=== PATIENT | female | born 1935 | race Caucasian/White ===

== ENCOUNTER 2017-02-14 14:37 | Outpatient (CLI) | payer MEDICARE, BC ==
--- NOTE | 2017-02-20 14:08 | MMO ---
BILATERAL DIGITAL SCREENING MAMMOGRAMS: Date: 02/14/17 HISTORY: 82-year-old female presents for digital screening mammogram. COMPARISON: 10/21/14, 10/17/12. FINDINGS: This patient's mammogram was interpreted with the assistance of computer-aided detection. Scattered areas of fibroglandular density noted bilaterally. Numerous typically benign stable calcifi cations. No direct or indirect evidence of malignancy. IMPRESSION: BIRADS 2: Benign Finding(s) Continue routine screening. POS: [facility]
== END 2017-02-14 14:38 | disposition home or self-care (01) ==
LOC: MAMMO 14:37
PROVIDERS: ATTEND Family Medicine
DX: Z12.31 Encounter for screening mammogram for malignant neoplasm of breast (principal)
CPT/HCPCS: 77067; G0202

== ENCOUNTER 2017-04-20 08:50 | Outpatient (CLI) | payer MEDICARE, BC | END 2017-04-20 08:51 | disposition home or self-care (01) | LOC: BICULT 08:50 | PROVIDERS: ATTEND Internal Medicine Nephrology | DX: N18.3 Chronic kidney disease, stage 3 (moderate) (principal); N28.1 Cyst of kidney, acquired | CPT/HCPCS: 76700; 76770 ==

== ENCOUNTER 2017-09-04 10:36 | Outpatient (CLI) | payer MEDICARE, BC | END 2017-09-04 10:37 | disposition home or self-care (01) | LOC: BICMAMMO 10:36 | PROVIDERS: ATTEND Family Medicine | DX: Z78.0 Asymptomatic menopausal state (principal) | CPT/HCPCS: 77080 ==

== ENCOUNTER 2017-11-22 10:52 | Observation (INO) | payer MEDICARE, BC ==
[2017-11-22] MEDS ORDERED: Metoclopramide HCl 10 MG/2 ML VIAL ONE (11:09)
[2017-11-22] MEDS ORDERED: Acetaminophen 500 MG TAB ONE (11:09)
[2017-11-22] MEDS ORDERED: diphenhydrAMINE 50 MG/ML VIAL ONE (11:10)
[2017-11-22 11:14] LABS: #Basophils 0.1 thou/uL (0.0-0.2); #Lymphocytes 3.2 thou/uL (1.20-3.40); #Neutrophils 8.5 thou/uL (1.40-6.50); %Basophils 0.8 % (0.0-1.0); %Eosinophils 0.1 % (0.0-10.0); %Lymphocytes 25.2 % (21.0-51.0); %Monocytes 7.9 % (0.0-10.0); Hemoglobin 14.4 g/dL (12.0-16.0); Mean Corpuscular HGB CONC 35.7 g/dL (32.0-36.0); Mean Corpuscular Hemoglobin 34.5 pg (27.0-31.0); Mean Corpuscular Volume 96.5 fL (78.0-98.0); Mean Platelet Volume 7.1 fL (7.4-10.4); Platelet Count 238 thou/uL (130-400); RBC Distribution Width 11.8 % (11.5-14.5); Red Blood Cell (RBC) Count 4.18 mill/uL (4.20-5.40); White Blood Cell (WBC) Count 12.8 thou/uL (4.8-10.8)
--- NOTE | 2017-11-22 12:35 | CT ---
CT ANGIOGRAM HEAD: HISTORY: Intractable headache. Worst headache of life. COMPARISON: None. TECHNIQUE: A noncontrast head CT is performed in the axial plane. A CT angiogram of the head is performed in th e axial plane. Three-dimensional reformatted images are submitted for interpretation. FINDINGS: CT HEAD: No parenchymal hemorrhage. No extraaxial hematoma. No parenchymal mass, mass effect, or m idline shift. Age appropriate brain volume. Cortical mcneil white matter differentiation is preserved . The ventricles and sulci are patent and symmetric. The calvarium is intact. Adequate aeration of the sinuses and mastoid air cells. Post contrast images do not demonstrate any pathologic enhancement of the brain parenchyma. The distal cervical and intracranial internal carotid arteries have symmetric enhancement and luminal diameter. ANTERIOR CIRCULATION: There is appropriate enhancement and luminal diameter of the A1 and M1 segment s. The proximal M2 segments and A2 segments are unremarkable. The proximal MCA branches are also un remarkable. No evidence of aneurysm in the anterior circulation. POSTERIOR CIRCULATION: Co-dominant vertebral arteries. Limited evaluation of the right PICA origin. The left PICA origin appears to be unremarkable. Both vertebral arteries supply a normal appearing basilar artery. The left and right P1 segments have appropriate enhancement and luminal diameter. There is no evidence of an aneurysm in the posterior circulation. IMPRESSION: 1. No acute intracranial process. 2. Unremarkable CT angiogram of the [place]. No evidence of an aneurysm. POS: [facility]
[2017-11-22 12:37] LABS: ALT (SGPT) 13 U/L (8-55); AST (SGOT) 23 U/L (5-34); Albumin 3.6 g/dL (3.4-4.8); Alkaline Phosphatase 77 U/L (40-150); Anion Gap 10 mmol/L (10-20); BUN (Urea Nitrogen) 23 mg/dL (9.8-20.1); Bilirubin, Total 1.4 mg/dL (0.2-1.2); Calc. Creatinine Clearance 0 mL/min (70-130); Calcium 9.1 mg/dL (7.8-10.44); Carbon Dioxide 31 mmol/L (23-31); Chloride 98 mmol/L (98-107); Estimated GFR-MDRD 45; Globulin 3.5 g/dL (2.4-3.5); Glucose 119 mg/dL (83-110); Protein, Total 7.1 g/dL (6.0-8.3); Sodium 136 mmol/L (136-145)
[2017-11-22 12:41] LABS: Potassium 2.9 mmol/L (3.5-5.1)
[2017-11-22] MEDS ORDERED: ISOVUE-370 76%-LOCM 1 ML ONE (12:47)
[2017-11-22] MEDS ORDERED: methylPREDNISolone Sod Succ/PF 125 MG/2 ML VIAL ONE (14:17)
[2017-11-22] MEDS ORDERED: Magnesium 2 GM/NS 0.9% 100 ML 2 GM in Premix Bag 1 BAG IVPB SCH (14:30)
[2017-11-22 16:30] LABS: CSF Source CSF; Clarity Clear (Clear); Tube # 4
[2017-11-22 16:32] LABS: RBC Count - Manual 1 /cumm (None Seen); WBC/NonHematics Count - Manual 0 /cumm (0-5)
[2017-11-22] MEDS ORDERED: Potassium Chloride 20 MEQ TAB ONE (16:32)
[2017-11-22 16:40] LABS: CSF Source CSF; Clarity Clear (Clear); RBC Count - Manual 71 /cumm (None Seen); Tube # 1; WBC/NonHematics Count - Manual 1 /cumm (0-5)
[2017-11-22 16:53] LABS: CSF, Glucose 73 mg/dl (40-70)
[2017-11-22 16:54] LABS: Color Of CSF Supernatant COLORLESS (Colorless); Unspun CSF Color COLORLESS (Colorless)
[2017-11-22 16:55] LABS: Tube # 2
--- NOTE | 2017-11-22 16:58 | RAD ---
LUMBAR PUNCTURE UNDER FLUOROSCOPIC GUIDANCE 11/22/17 HISTORY: Headache. COMPARISON: None. FINDINGS: Two views lumbar spine: There are five lumbar type vertebral bodies. Vertebral body height is maintained. Disc spaces heights are preserved. No fracture. There is mild scoliosis of the lumbar spine. Atherosclerosis is identifi ed. Technically successful lumbar puncture. A total of 9 mL of clear CSF was removed. No immediate or pos tprocedure complication. TECHNIQUE: Consent obtained to perform a lumbar puncture under fluoroscopic guidance. The L3-4 level is deemed a ppropriate. Skin is prepped and draped in the sterile fashion. 1% lidocaine, buffered with sodium use d for local anesthesia. Under fluoroscopic guidance, 22 gauge spinal needle was advanced in the CSF s pace. Via short tubing catheter, total of 9 mL of clear CSF was collected. The patient tolerated the procedure well. No immediate or postprocedure complications. IMPRESSION: Successful lumbar puncture with fluoroscopic guidance. POS: [facility]
[2017-11-22 17:13] LABS: CSF, Protein 39 mg/dL (15-40)
[2017-11-22] MEDS ORDERED: cefTRIAXone\\ROCEPHIN 2 GM VIAL ONE (17:42)
[2017-11-22] MEDS ORDERED: traMADol HCl 50 MG TAB PO PRN (21:36)
[2017-11-22] MEDS ORDERED: cloNIDine 0.1 MG TAB PO PRN (21:36)
[2017-11-22] MEDS ORDERED: hydrALAZINE 20 MG/ML VIAL SLOW IVP PRN (21:36)
[2017-11-22] MEDS ORDERED: Ondansetron HCl/PF 4 MG/2 ML Vial IVP PRN (21:36)
[2017-11-22] MEDS ORDERED: Acetaminophen 500 MG TAB PO PRN (21:36)
[2017-11-22] MEDS ORDERED: Potassium Chloride 20 MEQ TAB PO SCH (21:45)
[2017-11-22 22:24] VITALS: BMI 33.7
[2017-11-22] MEDS: Ketorolac Tromethamine 30 MG/ML VIAL IVP SCH (23:28)
[2017-11-22] MEDS: Sodium Chloride 0.9% 1,000 ML IV SCH (23:31)
--- NOTE | 2017-11-23 01:50 | HP ---
DATE OF ADMISSION: 11/22/2017 PRIMARY CARE PHYSICIAN: Dr. Jonathan Shaw. CHIEF COMPLAINT: Headache. HISTORY OF PRESENT ILLNESS: This is an 82-year-old female who was sent from Dr. Shaw's office to the Emergency Department after complaining of crescendo headache that began approximately 4 8 hours prior to this evaluation. Patient reports increasing neck stiffness, left greater than right , which began initially in her shoulder area migrating to the back of her neck and eventually her sca lp. Patient denied any recent trauma, injury, heavy lifting, fever, chills, sinus pressure, high alt itude exposure or water submersion. Patient states she used cold packs to sleep on at night with lit tle relief to her neck. Patient denies any family members with similar symptoms, recent travel or ch danelle to her diet. Patient does state that she was recently taken off of chronic lisinopril by her ne phrologist and placed upon iron supplements by her primary care provider. Patient also admits to jasson e back discomfort, worse with prolonged sitting, but denies any increased shortness of breath, chest pain, left arm discomfort or jaw pain. Patient denied any change to her vision, recent change to her corrective lens wear prescription. Patient denied any unilateral symptoms. In the emergency room, patient underwent extensive evaluation including CT angiogram of the [place] showing no acut e process. Patient underwent lumbar puncture by fluoroscopy with initial CSF evaluation negative. P atient received a multitude of medications in the emergency room to include IV Rocephin, potassium ch loride, magnesium sulfate, Solu-Medrol, Reglan, Tylenol, Benadryl, and intravenous normal saline x1 l iter. Patient states her headache has improved with minimal residual left-sided pain. PAST MEDICAL HISTORY: 1. Hypertension. 2. Chronic anemia with iron deficiency component. 3. Hyperlipidemia. 4. History of varicose veins. 5. Diverticulosis. 6. Osteopenia. 7. Chronic neck pain. PAST SURGICAL HISTORY: 1. Status post varicose vein stripping. 2. Status post eye surgery x2. 3. Status post hysteroscopy with dilation and curettage. CURRENT MEDICATIONS: 1. Amlodipine 10 mg p.o. daily. 2. Aspirin 81 mg p.o. daily. 3. Clonidine 0.1 mg p.r.n. 4. Iron 65 mg elemental 1 tab p.o. daily. 5. Loratadine 10 mg p.o. daily. ALLERGIES: No known drug allergies. FAMILY HISTORY: No inheritable diseases per patient report. SOCIAL HISTORY: Patient is , residing in [place], [place] over the last 50 years. Originally fro [place]. No current alcohol, tobacco or illicit drug use. REVIEW OF SYSTEMS: The following complete review of systems was negative, unless otherwise mentioned in the HPI or below: Constitutional: Weight loss or gain, ability to conduct usual activities. Sk in: Rash, itching. Eyes: Double vision, pain. ENT/Mouth: Nose bleeding, neck stiffness, pain, te nderness. Cardiovascular: Palpitations, dyspnea on exertion, orthopnea. Respiratory: Shortness of breath, wheezing, cough, hemoptysis, fever or night sweats. Gastrointestinal: Poor appetite, abdom inal pain, heartburn, nausea, vomiting, constipation, or diarrhea. Genitourinary: Urgency, frequenc y, dysuria, nocturia. Musculoskeletal: Pain, swelling. Neurologic/Psychiatric: Anxiety, depressio n. Allergy/Immunologic: Skin rash, bleeding tendency. PHYSICAL EXAMINATION: VITAL SIGNS: On admission, blood pressure 161/65, pulse 75, respiratory rate 18, temperature 98.1 de grees Fahrenheit, O2 saturation 98% on room air. GENERAL APPEARANCE: This is an 82-year-old female, alert and oriented x3, pleasant, conver zohaib, smiling, in no acute distress. HEENT: Pupils are equal, round, and reactive to light and accommodation. Extraocular muscles are in tact. No scleral icterus, no conjunctival injection. Nares patent. OP is clear. Teeth in fair rep air. NECK: Supple. No cervical adenopathy, no thyromegaly. Mild tenderness to palpation in the paravert ebral musculature of the cervical spine. No palpable mass. Diminished range of motion in the termin al degrees of rotation. Mild meningismus. CHEST: Lungs are clear to auscultation bilaterally. CARDIOVASCULAR: S1, S2, without noted murmur, rub or gallop. ABDOMEN: Rounded, soft, nontender, nondistended. Bowel sounds are positive in all four quadrants. No hepatosplenomegaly, no abdominal bruits, no rebound or guarding appreciated. EXTREMITIES: Warm and dry with fair turgor. No clubbing, cyanosis or asymmetric edema appreciated. Pulses palpable distally at the dorsalis pedis, posterior tibial, and popliteal arteries bilaterally . Capillary refill less than 2 seconds. NEUROLOGIC: Cranial nerves II-XII are grossly intact. No photophobia. No lateralizing features. F ollows all commands. Not observed ambulatory during this exam. PERTINENT LABORATORY AND X-RAY FINDINGS: Sodium 136, potassium 2.9, chloride 98, CO2 of 31, BUN 23, creatinine 1.15. Estimated GFR of 45, glucose 119, calcium 9.1, total bilirubin 1.4. LFTs within no rmal limits. CBC showed a white blood cell count of 12.8, hemoglobin 14, hematocrit 40, platelet cou nt 238 with 66% neutrophils. ESR 61. Cerebral spinal fluid showed 1 RBC in tube 4 and 71 in tube 1, glucose 73, total protein 39, clear sample noted. CSF culture dated 11/22/2017 showed no organisms and no white blood cells. CT angiogram of [place] showed no acute process. ASSESSMENT AND PLAN: 1. Intractable headache. Patient will be placed in observation status. Suspect musculoskeletal in origin. We will continue Toradol 30 mg IV q.6 hours. Tylenol 1000 mg p.o. every 6 hours p.r.n. pain . Continue intravenous normal saline 75 mL per hour. Continue tramadol 50 mg p.o. q.6 hours p.r.n. pain. 2. Hypokalemia, mild. We will continue potassium supplementation and repeat potassium level in the a.m. 3. Chronic kidney disease stage 3. We will continue IV fluids at low volume and avoid nephrotoxic a gents and contrast media. Repeat creatinine in the a.m. 4. Hypertension. Resume home antihypertensive regimen and monitor serial blood pressures. 5. Prophylaxis. Sequential compression devices while in bed. Pepcid 20 mg p.o. b.i.d. 6. Code status is FULL. Surrogate medical decision maker is patient's spouse.
[2017-11-23 05:53] LABS: Hemoglobin 13.3 g/dL (12.0-16.0); Mean Corpuscular HGB CONC 36.6 g/dL (32.0-36.0); Mean Corpuscular Hemoglobin 35.2 pg (27.0-31.0); Mean Corpuscular Volume 96.1 fL (78.0-98.0); Mean Platelet Volume 6.6 fL (7.4-10.4); Platelet Count 224 thou/uL (130-400); RBC Distribution Width 11.4 % (11.5-14.5); Red Blood Cell (RBC) Count 3.79 mill/uL (4.20-5.40)
[2017-11-23] MEDS: Ketorolac Tromethamine 30 MG/ML VIAL IVP SCH ×2 (05:58→14:07)
[2017-11-23 06:01] LABS: Anion Gap 15 mmol/L (10-20); BUN (Urea Nitrogen) 26 mg/dL (9.8-20.1); Calc. Creatinine Clearance 48 mL/min (70-130); Carbon Dioxide 25 mmol/L (23-31); Chloride 103 mmol/L (98-107); Estimated GFR-MDRD 48; Glucose 164 mg/dL (83-110); Potassium 3.6 mmol/L (3.5-5.1); Sodium 139 mmol/L (136-145)
[2017-11-23 06:03] LABS: Band 1 % (5-11); Lymphocytes 10 % (21-51); MDiff Complete? YES; Neutrophil 89 % (42-75); PLT Morphology Comment Appears Adequate; RBC Morphology Normal
[2017-11-23] MEDS: Ondansetron ODT 4 MG TAB PO PRN ×2 (06:06→14:11)
[2017-11-23] MEDS ORDERED: Potassium Chloride 20 MEQ TAB PO SCH (08:00)
[2017-11-23] MEDS ORDERED: Famotidine 20 MG TAB PO SCH (09:00)
[2017-11-23] MEDS: Sodium Chloride 0.9% 1,000 ML IV SCH (12:17)
--- NOTE | 2017-11-23 13:17 | DIS ---
DATE OF ADMISSION: 11/22/2017 DATE OF DISCHARGE: 11/23/2017 DISCHARGE DIAGNOSES: 1. Intractable headache secondary to musculoskeletal etiology, resolved. 2. Hypokalemia, mild, resolved. 3. Acute kidney injury, mild, resolved. 4. Dehydration, resolved. 5. Hypertension, stable. CONSULTATIONS: None. PERTINENT LAB AND X-RAY FINDINGS: Potassium ranged between 2.9-3.6, creatinine ranged between 1.09-1 .15. Estimated GFR ranged between 45-48. CBC showed a white blood cell count ranging between 9.0-12 .8. CSF culture dated 11/22/2017 showed no growth at [address] angio of the [place] chidi ed 11/22/2017 showed no acute intracranial process. HOSPITAL COURSE: The patient was observed on the telemetry unit after initially presenting with bryce re headache, undergoing extensive evaluation including lumbar puncture and neuro imaging. The patien t initially received IV Rocephin, Solu-Medrol, Reglan, Benadryl, and magnesium sulfate as well as IV fluids. The patient's headache had improved and resolved by the time of discharge. No specific evid ence of infectious process was identified, and the patient was ruled out for an acute intracranial pr ocess. The patient was given IV fluids and potassium supplementation and overall remained clinically stable. I discussed pertinent laboratory findings and imaging results with the patient at the time of dischar ge and she verbalized understanding and agreement. The patient overall clinically stable and ready f or discharge 11/23/2017. DISCHARGE MEDICATIONS: 1. Amlodipine 10 mg 1 tab p.o. daily. 2. Enteric coated aspirin 81 mg p.o. daily. 3. Calcium carbonate 500 mg p.o. b.i.d. 4. [place] 12.5 mg p.o. daily. 5. Clonidine 0.1 mg p.o. b.i.d. 6. [place] 3 fatty acids 1 capsule p.o. t.i.d. 7. Iron 65 mg p.o. daily. 8. Loratadine 10 mg p.o. daily. 9. Multivitamin 1 tab p.o. daily. FOLLOWUP: The patient to follow up with Dr. Yazan Shaw within 7 days of discharge. CONDITION ON DISCHARGE: Stable. ACTIVITY: Ad shaan. DIET: Heart healthy. CODE STATUS: Full. DISPOSITION: Home on 11/23/2017.
[2017-11-23 15:56] VITALS: TEMP 97.4
[2017-11-23 16:14] VITALS: BP 155/69
[2017-11-24] MEDS ORDERED: Famotidine 20 MG TAB PO SCH (09:00)
== END 2017-11-23 16:30 | disposition home or self-care (01) ==
LOC: ERS 10:52 → 2SW 21:27
PROVIDERS: ADMIT Family Medicine; ATTEND Family Medicine
DX: M79.9 Soft tissue disorder, unspecified (principal); R51 Headache; E78.5 Hyperlipidemia, unspecified; M85.80 Other specified disorders of bone density and structure, unspecified site; G89.29 Other chronic pain; M54.2 Cervicalgia; I12.9 Hypertensive chronic kidney disease with stage 1 through stage 4 chronic kidney disease, or unspecified chronic kidney disease; N18.3 Chronic kidney disease, stage 3 (moderate); D63.1 Anemia in chronic kidney disease; N17.9 Acute kidney failure, unspecified; E86.0 Dehydration; E87.6 Hypokalemia; Z79.82 Long term (current) use of aspirin; Z79.899 Other long term (current) drug therapy; Z88.5 Allergy status to narcotic agent
CPT/HCPCS: 62270; 70496; 80048; 80053; 82945; 84157; 85007; 85025; 85027; 85652; 87070; 87205; 89051; 96361 ×2; 96365; 96367; 96375 ×2; 96376; 99285; G0378 ×3; 36415; A4216; J0696; J1200; J1885; J2405; J2765; J2930; J3475; Q0162

== ENCOUNTER 2020-07-31 14:53 | Emergency (ER) | payer MEDICARE, BC ==
[2020-07-31] MEDS ORDERED: Iopamidol-370 76% 500 ML 1 ML ONE (15:19)
[2020-07-31 16:08] LABS: #Basophils 0.1 thou/uL (0.0-0.2); #Lymphocytes 1.9 thou/uL (1.20-3.40); #Monocytes 0.6 thou/uL (0.11-0.59); #Neutrophils 4.6 thou/uL (1.40-6.50); %Basophils 0.9 % (0.0-1.0); %Eosinophils 0.6 % (0.0-10.0); %Lymphocytes 26.7 % (21.0-51.0); %Monocytes 7.9 % (0.0-10.0); Hemoglobin 15.2 g/dL (12.0-16.0); Mean Corpuscular HGB CONC 33.3 g/dL (32.0-36.0); Mean Corpuscular Hemoglobin 36.1 pg (27.0-31.0); Mean Platelet Volume 7.6 fL (7.4-10.4); Platelet Count 194 thou/uL (130-400); Red Blood Cell (RBC) Count 4.19 mill/uL (4.20-5.40); White Blood Cell (WBC) Count 7.2 thou/uL (4.8-10.8)
[2020-07-31 16:29] LABS: ALT (SGPT) 31 U/L (8-55); AST (SGOT) 53 U/L (5-34); Albumin 3.8 g/dL (3.4-4.8); Alkaline Phosphatase 131 U/L (40-110); Anion Gap 17 mmol/L (10-20); BUN (Urea Nitrogen) 27 mg/dL (9.8-20.1); Bilirubin, Total 2.5 mg/dL (0.2-1.2); Calc. Creatinine Clearance 0 mL/min (70-130); Calcium 10.8 mg/dL (7.8-10.44); Carbon Dioxide 20 mmol/L (23-31); Chloride 101 mmol/L (98-107); Globulin 4.2 g/dL (2.4-3.5); Glucose 129 mg/dL (83-110); Lipase 28 U/L (8-78); Potassium 4.1 mmol/L (3.5-5.1); Sodium 134 mmol/L (136-145)
[2020-07-31] MEDS ORDERED: Acetaminophen 500 MG TAB ONE (16:29)
[2020-07-31 16:39] LABS: MDiff Complete? YES; Macrocytosis SLIGHT = 6-15 cells (100X) (0-5/hpf); Platelet Morphology Comment Appears Adequate; Polychromasia SLIGHT = 2-3 cells (100X) (0-2/hpf)
[2020-07-31 16:53] LABS: Bilirubin Negative (Negative); Blood, Urine Trace (Negative); Clarity Turbid (Clear); Glucose, Urine (Dipstick) Normal (Negative); Ketone, Urine Negative (Negative); Leukocyte 500 Leu/uL (Negative); Nitrite Negative (Negative); Protein, Urine (Dipstick) 100 mg/dL (Neg-Trace); Specific Gravity, Urine 1.025 (1.002-1.036); Squamous Epithelial 0-3 HPF (0-3); Urobilinogen Normal mg/dL (Less than 2); WBC/HPF Greater than 50 HPF (0-3); pH, Urine 5.5 (5.0-9.0)
[2020-07-31 16:58] LABS: Bacteria/HPF 1+ HPF (None Seen)
== END 2020-07-31 18:16 | disposition home or self-care (01) ==
LOC: ERS 14:53
DX: N39.0 Urinary tract infection, site not specified (principal); E83.52 Hypercalcemia; R94.5 Abnormal results of liver function studies; N17.9 Acute kidney failure, unspecified; D64.9 Anemia, unspecified; I10 Essential (primary) hypertension; Z79.01 Long term (current) use of anticoagulants; Z79.899 Other long term (current) drug therapy
CPT/HCPCS: 36415; 70450; 74177; 80053; 81003; 81015; 83690; 84484; 85025; 86850; 86900; 86901; 93005; Q9967

== ENCOUNTER 2020-09-09 11:41 | Inpatient (IN) | payer MEDICARE, BC ==
[~2020-09-09 11:41] MED LIST: Iopamidol-370 76% 500 ML 1 ML ONE
[2020-09-09] MEDS ORDERED: Fentanyl 100 MCG/2 ML VIAL ONE (12:24)
[2020-09-09] MEDS ORDERED: Ondansetron PF 4 MG/2 ML Vial ONE (12:24)
[2020-09-09 12:38] LABS: #Basophils 0.1 thou/uL (0.0-0.2); #Lymphocytes 2.4 thou/uL (1.20-3.40); #Monocytes 0.6 thou/uL (0.11-0.59); #Neutrophils 5.8 thou/uL (1.40-6.50); %Basophils 0.7 % (0.0-1.0); %Eosinophils 0.2 % (0.0-10.0); %Lymphocytes 27.3 % (21.0-51.0); %Monocytes 6.8 % (0.0-10.0); Band 1 % (5-11); Hemoglobin 17.1 g/dL (12.0-16.0); Lymphocytes 21 % (21-51); MDiff Complete? YES; Macrocytosis MODERATE=16-30 cells (100X) (0-5/hpf); Mean Corpuscular HGB CONC 32.8 g/dL (32.0-36.0); Mean Corpuscular Hemoglobin 36.3 pg (27.0-31.0); Mean Platelet Volume 7.9 fL (7.4-10.4); Monocytes 8 % (0-10); Neutrophil 70 % (42-75); Platelet Count 217 thou/uL (130-400); Platelet Morphology Comment Appears Adequate; RBC Distribution Width 13.2 % (11.5-14.5); Red Blood Cell (RBC) Count 4.71 mill/uL (4.20-5.40); White Blood Cell (WBC) Count 8.9 thou/uL (4.8-10.8)
[2020-09-09 12:51] LABS: ALT (SGPT) 52 U/L (8-55); AST (SGOT) 84 U/L (5-34); Albumin 3.7 g/dL (3.4-4.8); Alkaline Phosphatase 100 U/L (40-110); Anion Gap 21 mmol/L (10-20); BUN (Urea Nitrogen) 62 mg/dL (9.8-20.1); Bilirubin, Total 2.8 mg/dL (0.2-1.2); Calc. Creatinine Clearance 0 mL/min (70-130); Calcium 9.3 mg/dL (7.8-10.44); Carbon Dioxide 25 mmol/L (23-31); Chloride 94 mmol/L (98-107); Globulin 3.8 g/dL (2.4-3.5); Glucose 95 mg/dL (83-110); Lipase 53 U/L (8-78); Magnesium 1.8 mg/dL (1.6-2.6); Potassium 4.2 mmol/L (3.5-5.1); Protein, Total 7.5 g/dL (5.8-8.1); Sodium 136 mmol/L (136-145)
[2020-09-09] MEDS ORDERED: Piperacillin/Tazobactam 3.375 GM VIAL ONE (13:55)
[2020-09-09] MEDS ORDERED: Sodium Chloride 0.9% 100 ML ONE (13:55)
[2020-09-09 16:12] LABS: Lactic Acid 2.4 mmol/L (0.5-2.2)
[2020-09-09 16:15] LABS: Troponin I 0.017 ng/mL (< 0.028)
[2020-09-09] MEDS ORDERED: Ondansetron ODT 4 MG TAB PO PRN (17:07)
[2020-09-09] MEDS ORDERED: Acetaminophen 325 MG TAB PO PRN (17:12)
[2020-09-09 17:48] LABS: Digoxin Less than 0.15 ng/mL (0.8-2.0)
[2020-09-09 18:07] VITALS: BMI 29.0
[2020-09-09] MEDS: Sodium Chloride 0.9% 1,000 ML IV SCH (18:42)
[2020-09-09] MEDS: Metoclopramide HCl 10 MG/2 ML VIAL IVP SCH (22:37)
[2020-09-10] MEDS: Metoclopramide HCl 10 MG/2 ML VIAL IVP SCH ×2 (05:47→22:26)
[2020-09-10 05:48] LABS: #Lymphocytes 2.7 thou/uL (1.20-3.40); #Monocytes 0.8 thou/uL (0.11-0.59); #Neutrophils 4.8 thou/uL (1.40-6.50); %Basophils 0.1 % (0.0-1.0); %Eosinophils 0.4 % (0.0-10.0); %Neutrophils 57.6 % (42.0-75.0); Hemoglobin 16.7 g/dL (12.0-16.0); Mean Corpuscular HGB CONC 33.5 g/dL (32.0-36.0); Mean Corpuscular Hemoglobin 37.4 pg (27.0-31.0); Mean Platelet Volume 7.9 fL (7.4-10.4); Platelet Count 180 thou/uL (130-400); RBC Distribution Width 13.5 % (11.5-14.5); Red Blood Cell (RBC) Count 4.46 mill/uL (4.20-5.40); White Blood Cell (WBC) Count 8.3 thou/uL (4.8-10.8)
[2020-09-10 05:51] LABS: Anion Gap 19 mmol/L (10-20); BUN (Urea Nitrogen) 53 mg/dL (9.8-20.1); Calc. Creatinine Clearance 23 mL/min (70-130); Calcium 8.1 mg/dL (7.8-10.44); Carbon Dioxide 17 mmol/L (23-31); Chloride 102 mmol/L (98-107); Glucose 75 mg/dL (83-110); Potassium 4.2 mmol/L (3.5-5.1); Sodium 134 mmol/L (136-145)
[2020-09-10] MEDS: Digoxin 0.125 MG TAB PO SCH (07:49)
[2020-09-10] MEDS ORDERED: Enoxaparin Sodium 30 MG/0.3 ML SYRINGE SC SCH (09:00)
[2020-09-10] MEDS ORDERED: Enoxaparin Sodium 40 MG/0.4 ML SYRINGE SC SCH (09:00)
[2020-09-10] MEDS: Ondansetron PF 4 MG/2 ML Vial IVP PRN ×2 (10:28→17:57)
[2020-09-10] MEDS: Sodium Chloride 0.9% 1,000 ML IV SCH (10:28)
[2020-09-10] MEDS ORDERED: Enoxaparin Sodium 60 MG/0.6 ML SYRINGE SC SCH (10:30)
[2020-09-10] MEDS ORDERED: Metoclopramide HCl 10 MG/2 ML VIAL IVP SCH (13:45)
[2020-09-10] MEDS ORDERED: Digoxin 0.5 MG/2 ML AMP SLOW IVP SCH ×2 (17:15→23:30)
[2020-09-10] MEDS ORDERED: Pantoprazole 40 MG VIAL IVP SCH (18:45)
[2020-09-10] MEDS ORDERED: Metoprolol Tartrate 25 MG TAB PO SCH (21:00)
[2020-09-11] MEDS ORDERED: Dextrose 50% Abboject 50 ML SYRINGE SLOW IVP SCH (03:00)
[2020-09-11] MEDS ORDERED: Dextrose 5% in Water 1,000 ML IV SCH (03:00)
[2020-09-11] MEDS ORDERED: Furosemide 40 MG/4 ML VIAL ONE (03:06)
[2020-09-11] MEDS ORDERED: Dextrose 50% Abboject 50 ML SYRINGE ONE (03:07)
[2020-09-11] MEDS ORDERED: Furosemide 40 MG/4 ML VIAL SLOW IVP SCH (03:15)
[2020-09-11 04:13] LABS: #Monocytes 1.1 thou/uL (0.11-0.59); #Neutrophils 14.4 thou/uL (1.40-6.50); %Basophils 0.1 % (0.0-1.0); %Eosinophils 0.1 % (0.0-10.0); %Lymphocytes 5.9 % (21.0-51.0); %Monocytes 6.6 % (0.0-10.0); %Neutrophils 87.3 % (42.0-75.0); Hemoglobin 16.3 g/dL (12.0-16.0); Mean Corpuscular HGB CONC 31.5 g/dL (32.0-36.0); Mean Corpuscular Hemoglobin 37.1 pg (27.0-31.0); Mean Platelet Volume 8.5 fL (7.4-10.4); Platelet Count 184 thou/uL (130-400); RBC Distribution Width 14.1 % (11.5-14.5); Red Blood Cell (RBC) Count 4.38 mill/uL (4.20-5.40); White Blood Cell (WBC) Count 16.5 thou/uL (4.8-10.8)
[2020-09-11] MEDS: Sodium Chloride 0.9% 1,000 ML IV SCH (05:28)
[2020-09-11] MEDS: Metoclopramide HCl 10 MG/2 ML VIAL IVP SCH ×2 (06:34→13:59)
[2020-09-11 07:46] VITALS: BP 111/79
[2020-09-11] MEDS ORDERED: Piperacillin/Tazobactam 3.375 GM in Sodium Chloride 0.9% 100 ML IVPB SCH (08:00)
[2020-09-11 08:10] LABS: Actual Bicarbonate (HCO3a) 5.7 mEq/L (22-28); Base Excess (BEa) -21.6 mEq/L (-2.0 to +3.0); Calcium, Ionized (arterial) 1.03 mmol/L (1.12-1.30); Carboxyhemoglobin (COHb) 0.4 gm% (0.0-3.0); Hemoglobin (Hb) 16.2 g/dL (12.0-16.0); O2 Tension (PaO2), arterial 98.7 mmHg (> 60.0); Potassium - ABG Lab 5.01 mmol/L (3.70-5.30)
[2020-09-11 08:13] LABS: ALV-art Gradient 135.105 mmHg (0-20); CO2 Tension 18.3 mmHg (35.0-45.0); Puncture Site RRA; pH, Arterial 7.11 (7.35-7.45)
[2020-09-11] MEDS ORDERED: Sodium Chloride 0.9% 1,000 ML IV SCH ×2 (08:45→12:00)
[2020-09-11] MEDS ORDERED: Sodium Bicarb 5 MEQ/10 ML Abboject 4.2% SYRINGE IVP SCH ×3 (08:45→09:00)
[2020-09-11 08:48] LABS: Bilirubin Small (Negative); Blood, Urine Large (Negative); Glucose, Urine (Dipstick) Negative (Negative); Ketone, Urine Negative (Negative); Leukocyte Negative (Negative); Nitrite Negative (Negative); Protein, Urine (Dipstick) 100 mg/dL (Neg-Trace); Urobilinogen 0.2 mg/dL (Less than 2)
[2020-09-11 08:54] LABS: Clarity Hazy (Clear)
[2020-09-11 08:55] LABS: Specific Gravity, Urine 1.029 (1.002-1.036)
[2020-09-11] MEDS ORDERED: Sodium Bicarb 50 MEQ/50 ML Abboject 8.4% SYRINGE ONE (08:56)
[2020-09-11] MEDS ORDERED: Pantoprazole 40 MG VIAL IVP SCH (09:00)
[2020-09-11] MEDS ORDERED: Vancomycin 1 GM in Premix Bag 1 BAG IVPB SCH (09:00)
[2020-09-11] MEDS ORDERED: Enoxaparin Sodium 60 MG/0.6 ML SYRINGE SC SCH (09:00)
[2020-09-11] MEDS ORDERED: Sodium Bicarbonate 150 MEQ in Dextrose 5% in Water 1,000 ML IV SCH (09:00)
[2020-09-11 09:03] LABS: Bacteria/HPF None Seen HPF (None Seen); RBC/HPF Greater than 50 HPF (0-3); Squamous Epithelial 0-3 HPF (0-3)
[2020-09-11 09:05] LABS: Urine Culture Reflex Yes Yes
[2020-09-11] MEDS: Sodium Bicarb 50 MEQ/50 ML Abboject 8.4% SYRINGE ONE ×2 (09:07→09:37)
[2020-09-11] MEDS ORDERED: Sodium Bicarbonate 2.5 MEQ/5 ML VIAL IV SCH (09:15)
[2020-09-11] MEDS ORDERED: Sodium Chloride 0.9% 500 ML IV SCH (09:15)
[2020-09-11] MEDS: Digoxin 0.125 MG TAB PO SCH (09:26)
[2020-09-11 09:27] LABS: Prothrombin Time 72.4 sec (12.0-14.7)
[2020-09-11] MEDS ORDERED: Sodium Bicarb 50 MEQ/50 ML Abboject 8.4% SYRINGE IVP SCH (09:30)
[2020-09-11 09:40] LABS: INR-International Normal Ratio 8.5
[2020-09-11 09:42] LABS: ALT (SGPT) 1097 U/L (8-55); AST (SGOT) 2260 U/L (5-34); Albumin 2.6 g/dL (3.4-4.8); Alkaline Phosphatase 94 U/L (40-110); Anion Gap 33 mmol/L (10-20); BUN (Urea Nitrogen) 61 mg/dL (9.8-20.1); Calc. Creatinine Clearance 16 mL/min (70-130); Calcium 8.2 mg/dL (7.8-10.44); Carbon Dioxide 13 mmol/L (23-31); Chloride 101 mmol/L (98-107); Globulin 2.9 g/dL (2.4-3.5); Glucose 113 mg/dL (83-110); Potassium 5.2 mmol/L (3.5-5.1); Protein, Total 5.5 g/dL (5.8-8.1); Sodium 142 mmol/L (136-145)
[2020-09-11 10:04] LABS: Lactic Acid 17.2 mmol/L (0.5-2.2)
[2020-09-11] MEDS: HYDROmorphone 0.5 MG/0.5 ML SYRINGE SLOW IVP PRN ×2 (10:38→13:59)
[2020-09-11] MEDS ORDERED: Phytonadione 10 MG/ML AMP SLOW IVP SCH (11:00)
[2020-09-11] MEDS ORDERED: metroNIDAZOLE 500 MG in Premix Bag 1 BAG IVPB SCH (12:00)
[2020-09-11 16:59] VITALS: TEMP 97
== END 2020-09-11 18:00 | disposition hospice, inpatient (51) | DRG 871 ==
LOC: ERS 11:41 → 2SW 15:18 → OBSVTOIN 09-10 14:54 → CCU 09-11 08:51
PROVIDERS: ADMIT Internal Medicine; ATTEND Internal Medicine
DX: A41.9 Sepsis, unspecified organism (principal); R65.21 Severe sepsis with septic shock; I50.23 Acute on chronic systolic (congestive) heart failure; K72.00 Acute and subacute hepatic failure without coma; Z66 Do not resuscitate; Z51.5 Encounter for palliative care; K55.069 Acute infarction of intestine, part and extent unspecified; K55.059 Acute (reversible) ischemia of intestine, part and extent unspecified; E87.2 Acidosis; K80.12 Calculus of gallbladder with acute and chronic cholecystitis without obstruction; I48.19 Other persistent atrial fibrillation; N17.9 Acute kidney failure, unspecified; D68.9 Coagulation defect, unspecified; I73.9 Peripheral vascular disease, unspecified; I12.9 Hypertensive chronic kidney disease with stage 1 through stage 4 chronic kidney disease, or unspecified chronic kidney disease; N18.30 Chronic kidney disease, stage 3 unspecified; E78.5 Hyperlipidemia, unspecified; E86.0 Dehydration; I07.1 Rheumatic tricuspid insufficiency; Z88.6 Allergy status to analgesic agent; Z79.899 Other long term (current) drug therapy
CPT/HCPCS: 36415; 36416; 36600; 71045; 74177; 76705; 78227; 80048; 80053; 80162; 82805; 83605; 83690; 83735; 83880; 84484; 85025; 85610; 85730; 87040; 87086; 93005; 93306; 96365; 96372; 96375; 96376; A9537; C9113; G0378; J1160; J1170; J1650; J1940; J1956; J2405; J2543; J2765; J3010; J3370; J3430; J3490; J7070; Q9967

== ENCOUNTER 2020-09-11 18:05 | Inpatient (IN) | payer OTHER ==
[2020-09-11 18:52] VITALS: BMI 35.4
[2020-09-11] MEDS ORDERED: Acetaminophen 650 MG Suppository PR PRN (20:15)
[2020-09-11] MEDS ORDERED: Sodium Chloride 0.9% 1,000 ML IV SCH (20:15)
[2020-09-11] MEDS ORDERED: Morphine 4 MG/ML VIAL SLOW IVP PRN (20:15)
[2020-09-11] MEDS ORDERED: Scopolamine 1.5 mg/72 hour Patch TOP PRN (20:15)
[2020-09-11] MEDS ORDERED: Ondansetron PF 4 MG/2 ML Vial IVP PRN (20:15)
[2020-09-11] MEDS: Lorazepam 2 MG/ML VIAL SLOW IVP PRN (20:24)
[2020-09-11] MEDS: Morphine 2 MG/ML VIAL SLOW IVP PRN (22:50)
[2020-09-12] MEDS: Lorazepam 2 MG/ML VIAL SLOW IVP PRN (03:02)
[2020-09-12] MEDS: Morphine 2 MG/ML VIAL SLOW IVP PRN (04:07)
[2020-09-12] MEDS ORDERED: HYDROmorphone 2 MG/ML VIAL SLOW IVP PRN ×2 (05:27→05:28)
[2020-09-12 06:04] VITALS: BP 64/49
== END 2020-09-12 06:18 | disposition expired | DRG 951 ==
LOC: CCU 18:05 → T4-A 21:21
PROVIDERS: ADMIT Internal Medicine; ATTEND Internal Medicine
DX: Z51.5 Encounter for palliative care (principal); A41.9 Sepsis, unspecified organism; R65.21 Severe sepsis with septic shock; N17.9 Acute kidney failure, unspecified; E87.2 Acidosis; K55.9 Vascular disorder of intestine, unspecified; I50.20 Unspecified systolic (congestive) heart failure; Z66 Do not resuscitate; I73.9 Peripheral vascular disease, unspecified; I48.91 Unspecified atrial fibrillation; K81.1 Chronic cholecystitis; N18.30 Chronic kidney disease, stage 3 unspecified; Z88.6 Allergy status to analgesic agent; Z79.899 Other long term (current) drug therapy
CPT/HCPCS: J2060; J2270